=== PATIENT | female | born 1990 | race Caucasian/White ===

== ENCOUNTER 2019-08-17 16:18 | Emergency (ER) | payer OTHER, SELFPAY ==
[2019-08-17 16:30] VITALS: BP 140/71; PULSE 126; RESP 20; TEMP 37.9; O2SAT 98
--- NOTE | 2019-08-17 17:45 | ED.URI ---
HPI - URI/Sore Throat General Chief Complaint: Upper Respiratory Infection Stated Complaint: nausea fever aches Time Seen by Provider: 08/17/19 17:25 Source: RN notes reviewed Mode of arrival: ambulatory Limitations: no limitations History of Present Illness HPI Narrative: 28 year old female presents to [facility] care with complaints of cough, fever, chills for the past 2 days with some nausea and vomiting. Patient states that she is 19 weeks fever up to 101F and wants to be checked for flu. Patient states that she has had some yellowish nasal drainage and nasal congestion has taken some Tylenol for her fever and symptoms. Patient denies any ear pain or sore throat, or any urinary symptoms. MD elicited complaint: fever, cough, rhinorrhea and nasal congestion Pertinent past history: asthma Onset (ago): day(s) (1) Consistency: progressively worsening Severity: moderate Description of mucous: yellow Exacerbating factors: exertion and deep breaths Relieving factors: NSAID Associated symptoms: fever, myalgias, rhinorrhea, nasal congestion, cough, nausea and vomiting Treatments prior to arrival: acetaminophen Related Data Home Medications Medication Instructions Recorded Confirmed [id number]-[id number] 6-dha 3 cap PO DAILY 08/17/19 08/17/19 Allergies Allergy/AdvReac Type Severity Reaction Status Date / Time Penicillins Allergy Severe Rash Verified 08/17/19 16:41 SPICY FOODS Allergy Unknown UNKNOWN Uncoded 01/28/19 12:12 Review of Systems Review of Systems: Narrative: CONSTITUTIONAL: Positive fever, chills, or sweats. EYES: Denies visual changes, redness, or discharge. ENT: Positive rhinorrhea, congestion,no sore throat, or otalgia. CARDIOVASCULAR: Denies chest pain, palpitations, or edema. RESPIRATORY: Positive cough denies no dyspnea. GASTROINTESTINAL: Denies abdominal pain, nausea, vomiting, or diarrhea. GENITOURINARY: Denies dysuria or hematuria. SKIN: Denies rash or itching. MUSCULOSKELETAL: Denies back pain, joint pain,body aches NEUROLOGIC: Denies headache, numbness, or weakness. PSYCHIATRIC: Denies anxiety or depression. All systems reviewed & are unremarkable except as noted in HPI and below PMFSH Past Medical History Medical History (Updated 08/22/19 @ 16:13 by Rufina De La Rosa NP) Anxiety and depression Asthma Social History Social History (Updated 08/22/19 @ 16:14 by Rufina De La Rosa NP) Smoking status: Former smoker Living arrangements: with family Gender identity (if verbalized by the patient): Female Comments At time of signature, agree with nursing past medical, social history. There is no relevant family history pertinent to the presenting complaint Exam Narrative: Exam Narrative: GENERAL: Well-appearing, well-nourished, and in no acute distress. HEAD: Normocephalic, atraumatic. EYES: PERRLA and EOMI. ENT: Nares clear, clear rhinorrhea no epistaxis. Mucous membranes moist.TM's normal with good light reflex, NECK: Supple.no lymphadenopathy CHEST: Clear to auscultation. No respiratory distress. cough with expectoration of yellow mucous HEART: Regular rate and rhythm. No murmur heard. Normal peripheral pulses. ABDOMEN: Soft, nontender, nondistended, normal active bowel sounds. EXTREMITIES: Normal range of motion. No edema. SKIN: Warm, dry, no rash. NEURO: No focal deficits. Alert and oriented x3. Course Vital Signs Vital signs: Vital Signs Temperature 37.9 C H 08/17/19 16:30 Pulse Rate 126 H 08/17/19 16:30 Respiratory Rate 20 08/17/19 16:30 Blood Pressure 140/71 08/17/19 16:30 Pulse Oximetry 98 08/17/19 16:30 Temperature 37.9 C H 08/17/19 16:30 Pulse Rate 126 H 08/17/19 16:30 Respiratory Rate 20 08/17/19 16:30 Blood Pressure 140/71 08/17/19 16:30 Pulse Oximetry 98 08/17/19 16:30 MDM - URI/Sore Throat Differential Diagnosis Differential diagnosis: Likely upper respiratory infection, viral infection, influenza and other (Nausea and vomit
== END 2019-08-17 18:03 | disposition home or self-care (01) ==
PROVIDERS: Emergency Provider Registered Nurse
DX: J10.1 Influenza due to other identified influenza virus with other respiratory manifestations (principal); Z87.891 Personal history of nicotine dependence
CPT/HCPCS: 87804; 99213; G0463

== ENCOUNTER 2020-10-17 09:01 | Emergency (ER) | payer OTHER, SELFPAY ==
[2020-10-17 09:04] VITALS: BP 145/93; PULSE 115; RESP 22; TEMP 36.8; O2SAT 97
--- NOTE | 2020-10-17 09:14 | ED.GENADULT ---
HPI - General Adult General Chief complaint: Upper Respiratory Infection Stated complaint: no taste or smell and congestion Source: patient, RN notes reviewed and old records reviewed Mode of arrival: ambulatory Limitations: no limitations History of Present Illness HPI narrative: 29 year old female who presents to [facility] care with complaints of sore throat which started yesterday and loss of taste and smell this morning with body aches has also frontal headache and sinus drainage. Patient states she does have a history of asthma but has not had to use her inhaler for years, does have a current albuterol inhaler at home. Patient states that she has had past sinus infections, strep throat and also tonsillitis, denies any recent antibiotic use in the past 60 days. Patient states that her cough is nonproductive and she has no shortness of breath or any wheezing noted with lungs clear to auscultation, SAO2 99% on room air. Patient reports that 9 month old has cold symptoms of nasal congestion and cough. MD complaint: sore throat, cough, rhinorrhea, loss of taste and smell, body aches Onset (ago): day(s) (2) Location: head (headache) and mouth Radiation: non-radiation Severity: mild Severity scale (1-10): 3 Quality: aching Pain Consistency: constant Relieving factors: none Exacerbating factors: none Associated symptoms: cough, headaches and other (headache, loss of taste and smell) Treatments prior to arrival: NSAID Related Data Home Medications Medication Instructions Recorded Confirmed albuterol sulfate INHALATION 10/17/20 Allergies Allergy/AdvReac Type Severity Reaction Status Date / Time Penicillins Allergy Severe Rash Verified 10/17/20 09:23 SPICY FOODS Allergy Unknown UNKNOWN Uncoded 01/28/19 12:12 Review of Systems Review of Systems: Narrative: CONSTITUTIONAL: Denies any known fever, chills, positive sweats. EYES: Denies visual changes, redness, or discharge. ENT: Positive rhinorrhea, congestion,positive sore throat, no otalgia. CARDIOVASCULAR: Denies chest pain, palpitations, or edema. RESPIRATORY: Positive nonproductive cough, denies dyspnea. GASTROINTESTINAL: Denies abdominal pain, nausea, vomiting, or diarrhea. GENITOURINARY: Denies dysuria or hematuria. SKIN: Denies rash or itching. MUSCULOSKELETAL: Denies back pain, joint pain, states body aches NEUROLOGIC: Positive for headache, no numbness, or weakness. PSYCHIATRIC: Positive for anxiety or depression. All systems reviewed & are unremarkable except as noted in HPI and below PMFSH Past Medical History Medical History (Updated 10/17/20 @ 10:01 by Rufina De La Rosa NP) ADHD (attention deficit hyperactivity disorder) Anxiety and depression Asthma Surgical History Surgical History (Updated 10/17/20 @ 09:42 by Rufina De La Rosa NP) No history of previous surgery Family History Family History (Updated 10/17/20 @ 10:30 by Rufina De La Rosa NP) Other No pertinent family history Social History Social History (Updated 10/17/20 @ 10:29 by Rufina De La Rosa NP) Smoking status: Former smoker Alcohol intake: current Alcohol use details: Social Substance use: never Living arrangements: with family Gender identity (if verbalized by the patient): Female Comments At time of signature, agree with nursing past medical, surgical, social and family history. There is no relevant family history pertinent to the presenting complaint Exam Narrative: Exam Narrative: GENERAL: Well-appearing, well-nourished obese female and in no acute distress. HEAD: Normocephalic, atraumatic. EYES: PERRLA and EOMI. no nystagmus or eye drainage ENT: Nares with turbinates swollen copious clear rhinorrhea no epistaxis. Mucous membranes moist. TMs normal with good light reflex, throat red no exudates or lesions, mild tonsillar swelling postnasal drainage present NECK: Supple. No lymphadenopathy CHEST: Clear to auscultation. No respiratory distress. Nonpro
[2020-10-18 17:06] LABS: SARS-CoV-2 RNA PCR Negative
== END 2020-10-17 10:02 | disposition home or self-care (01) ==
PROVIDERS: Emergency Provider Registered Nurse; PCP Nurse Practitioner Family
DX: J06.9 Acute upper respiratory infection, unspecified (principal); Z20.822 Contact with and (suspected) exposure to COVID-19; Z87.891 Personal history of nicotine dependence; J45.909 Unspecified asthma, uncomplicated
CPT/HCPCS: 87081; 87426; 87804; 87880; 99213; C9803; G0463; U0003; U0005

== ENCOUNTER 2021-02-12 12:52 | Emergency (ER) | payer OTHER, SELFPAY ==
[2021-02-12 13:00] VITALS: BP 135/80; PULSE 103; RESP 20; TEMP 36.6; O2SAT 100
--- NOTE | 2021-02-12 13:00 | ED.URI ---
HPI - URI/Sore Throat General Chief Complaint: Upper Respiratory Infection Stated Complaint: nausea cough fatigue sore throat Time Seen by Provider: 02/12/21 13:00 Source: patient and RN notes reviewed History of Present Illness HPI Narrative: Patient is a 30-year-old female who presents the urgent care with complaints of fatigue, sore throat, cough, nausea and the taste of infection . Patient states her symptoms started 2 days ago and denies of any known exposure to strep or Covid. States that she has been taking ibuprofen for her symptoms. States that her and her son both have symptoms. Patient has not obtain a Covid test. Patient has not had her Covid vaccine. No other acute complaints. No acute distress noted. Patient aware of the plan of care. Some parts of this dictation were generated by voice recognition software and may contain typographical and/or grammatical inaccuracies. Related Data Home Medications Medication Instructions Recorded Confirmed No Home Medications 02/12/21 02/12/21 Allergies Allergy/AdvReac Type Severity Reaction Status Date / Time Penicillins Allergy Severe Rash Verified 02/12/21 13:08 Review of Systems Review of Systems: CONSTITUTIONAL: Denies fever, chills, or sweats. EYES: Denies visual changes, redness, or discharge. ENT: Reports of congestion, sore throat CARDIOVASCULAR: Denies chest pain, palpitations, or edema. RESPIRATORY: Reports of cough without dyspnea GASTROINTESTINAL: Denies abdominal pain, nausea, vomiting, or diarrhea. GENITOURINARY: Denies dysuria or hematuria. SKIN: Denies rash or itching. MUSCULOSKELETAL: Denies back pain, joint pain. Reports of fatigue NEUROLOGIC: Denies headache, numbness, or weakness. All other systems reviewed are negative, except as documented in HPI. [facility] Past Medical History Medical History (Updated 02/12/21 @ 13:25 by ANTHONY De Luna) ADHD (attention deficit hyperactivity disorder) Anxiety and depression Asthma Surgical History Surgical History (Updated 10/17/20 @ 09:42 by Rufina De La Rosa NP) No history of previous surgery Family History Family History (Updated 10/17/20 @ 10:30 by Rufina De La Rosa NP) Other No pertinent family history Social History Social History (Updated 10/17/20 @ 10:29 by Rufina De La Rosa NP) Smoking status: Former smoker Alcohol intake: current Alcohol use details: Social Substance use: never Gender identity (if verbalized by the patient): Female Comments At the time of my signature, I reviewed and agree with the nursing past medical, surgical, social, and family history. There is no relevant family history pertinent to the patient complaint. Exam Narrative: GENERAL: This is a well-nourished, well-developed patient, in no apparent distress. HEAD: normocephalic, atraumatic. EYES: PERRL. Sclera clear/white. Vision is grossly intact. EARS: External ears normal, auditory canals clear and without drainage, TMs normal without perforation. Hearing grossly intact. NOSE: External nose normal with no obvious nasal discharge, nares without redness, no rhinorrhea. THROAT: Mucous membranes moist, posterior pharynx clear. Moderate postnasal drainage NECK: Neck supple, non-tender without lymphadenopathy CARDIOVASCULAR: Regular rate and rhythm without murmurs, gallops, or rubs. RESPIRATORY: Clear to auscultation. Breath sounds equal bilaterally. No wheezes, rales, or rhonchi. SKIN: warm, intact with no suspicious lesions or rash, good texture and turgor. NEURO: awake, alert, and oriented to person, place and time. There were no obvious focal neurologic abnormalities. EXTREMITIES: No clubbing, cyanosis, or edema. Course Vital Signs Vital signs: Vital Signs Temperature 97.9 F 02/12/21 13:00 Pulse Rate 103 H 02/12/21 13:00 Respiratory Rate 20 02/12/21 13:00 Blood Pressure 135/80 02/12/21 13:00 Pulse Oximetry 100 02/12/21 13:00 Temperature 97.9 F
== END 2021-02-12 13:30 | disposition home or self-care (01) ==
PROVIDERS: Emergency Provider Nurse Practitioner Family; PCP Nurse Practitioner Family
DX: J02.9 Acute pharyngitis, unspecified (principal); Z87.891 Personal history of nicotine dependence; J45.909 Unspecified asthma, uncomplicated
CPT/HCPCS: 87081; 87880; 99213; G0463

== ENCOUNTER 2021-11-11 18:57 | Emergency (ER) | payer OTHER, SELFPAY ==
[2021-11-11 19:02] VITALS: BP 152/86; PULSE 86; RESP 20; TEMP 37.1; O2SAT 100
--- NOTE | 2021-11-11 19:03 | ED.DENTAL ---
HPI - Dental/Oral General Chief complaint: Dental/Oral Stated complaint: Toothache Time Seen by Provider: 11/11/21 19:03 Source: patient and RN notes reviewed History of Present Illness HPI Narrative: Patient is a 30-year-old female who presents the urgent care with complaints of left lower dental pain. Patient states that started approximately 4 days ago and she has been taking ibuprofen. Patient states that the pain is now radiating to her jaw and neck. Patient denies any fevers, nausea or vomiting. No other acute complaints. No acute distress noted. Patient aware of the plan of care. Some parts of this dictation were generated by voice recognition software and may contain typographical and/or grammatical inaccuracies. Related Data Allergies Allergy/AdvReac Type Severity Reaction Status Date / Time Penicillins Allergy Severe Rash Verified 02/12/21 13:08 Review of Systems Review of Systems: CONSTITUTIONAL: Denies fever, chills, or sweats. EYES: Denies visual changes, redness, or discharge. ENT: Denies rhinorrhea, congestion, sore throat, or otalgia. Reports of left lower dental pain CARDIOVASCULAR: Denies chest pain, palpitations, or edema. RESPIRATORY: Denies cough or dyspnea. GASTROINTESTINAL: Denies abdominal pain, nausea, vomiting, or diarrhea. GENITOURINARY: Denies dysuria or hematuria. SKIN: Denies rash or itching. MUSCULOSKELETAL: Denies back pain, joint pain, or myalgia. NEUROLOGIC: Denies headache, numbness, or weakness. All other systems reviewed are negative, except as documented in HPI. [facility] Past Medical History Medical History (Updated 11/11/21 @ 19:14 by ANTHONY De Luna) ADHD (attention deficit hyperactivity disorder) Anxiety and depression Asthma Surgical History Surgical History (Updated 10/17/20 @ 09:42 by Rufina De La Rosa NP) No history of previous surgery Family History Family History (Updated 10/17/20 @ 10:30 by Rufina De La Rosa NP) Other No pertinent family history Social History Social History (Updated 10/17/20 @ 10:29 by Rufina De La Rosa NP) Smoking status: Former smoker Alcohol intake: current Alcohol use details: Social Substance use: never Gender identity (if verbalized by the patient): Female Comments At the time of my signature, I reviewed and agree with the nursing past medical, surgical, social, and family history. There is no relevant family history pertinent to the patient complaint. Exam Narrative: GENERAL: This is a well-nourished, well-developed patient, in no apparent distress. HEAD: normocephalic, atraumatic. EYES: PERRL. Sclera clear/white. Vision is grossly intact. EARS: External ears normal NOSE: External nose normal with no obvious nasal discharge, nares without redness, no rhinorrhea. THROAT: Mucous membranes moist, posterior pharynx clear. DENTAL: Mild edema/abscess surrounding the left lower first molar, tooth #19 with moderate erythema NECK: Neck supple, non-tender without lymphadenopathy CARDIOVASCULAR: Regular rate and rhythm without murmurs, gallops, or rubs. RESPIRATORY: Clear to auscultation. Breath sounds equal bilaterally. No wheezes, rales, or rhonchi. SKIN: warm, intact with no suspicious lesions or rash, good texture and turgor. NEURO: awake, alert, and oriented to person, place and time. There were no obvious focal neurologic abnormalities. EXTREMITIES: No clubbing, cyanosis, or edema. Course Course Level of Care: Express Care Visit Vital Signs Vital signs: Vital Signs Temperature 98.7 F 11/11/21 19:02 Pulse Rate 86 11/11/21 19:02 Respiratory Rate 20 11/11/21 19:02 Blood Pressure 152/86 H 11/11/21 19:02 Pulse Oximetry 100 11/11/21 19:02 Temperature 98.7 F 11/11/21 19:02 Pulse Rate 86 11/11/21 19:02 Respiratory Rate 20 11/11/21 19:02 Blood Pressure 152/86 H 11/11/21 19:02 Pulse Oximetry 100 11/11/21 19:02 Reviewed-patient is informed that they may have pre-hypertension
== END 2021-11-11 19:20 | disposition home or self-care (01) ==
PROVIDERS: Emergency Provider Nurse Practitioner Family; PCP Nurse Practitioner Family
DX: K04.7 Periapical abscess without sinus (principal); J45.909 Unspecified asthma, uncomplicated
CPT/HCPCS: 99213; G0463

== ENCOUNTER 2021-12-22 09:25 | Emergency (ER) | payer OTHER, SELFPAY ==
[2021-12-22 09:32] VITALS: BP 151/94; PULSE 108; RESP 18; TEMP 36.9; O2SAT 98
--- NOTE | 2021-12-22 09:38 | ED.SKABFB ---
HPI - Skin/Abscess/Foreign Bdy General Chief complaint: Skin/Abscess/Foreign Body Stated complaint: Rash Time Seen by Provider: 12/22/21 09:43 Source: patient Mode of arrival: ambulatory Limitations: no limitations History of Present Illness HPI narrative: 30-year-old female presenting for complaint of rash to groin and lower abdominal fold for about 3 days. She has applied [id number] cream and has had no relief. States it is itching and burning. MD complaint: rash Related Data Home Medications Medication Instructions Recorded Confirmed acyclovir 400 mg tablet 1 tablet PO DAILY 12/22/21 12/22/21 dextroamphetamine-amphetamine ER 1 cap PO DAILY 12/22/21 12/22/21 15 mg 24hr capsule,extend release Allergies Allergy/AdvReac Type Severity Reaction Status Date / Time Penicillins Allergy Severe Rash Verified 12/22/21 09:40 Review of Systems Review of Systems: CONSTITUTIONAL: Denies body aches, fever, chills, or sweats. CARDIOVASCULAR: Denies chest pain, palpitations, or edema. RESPIRATORY: Denies cough or dyspnea. SKIN: Reports rash, itching MUSCULOSKELETAL: Denies back pain, joint pain, or myalgia. NEUROLOGIC: Denies headache, numbness, tingling, or weakness. [facility] Past Medical History Medical History ADHD (attention deficit hyperactivity disorder) Anxiety and depression Asthma Surgical History Surgical History No history of previous surgery Family History Family History Other No pertinent family history Social History Social History Smoking status: Former smoker Alcohol intake: current Alcohol use details: Social Substance use: never Gender identity (if verbalized by the patient): Female Comments At time of signature, I have reviewed and agree with nursing past medical, surgical, social and family history unless otherwise noted. Please see nursing chart for further information. There is no relevant family history pertinent to the presenting complaint Exam Narrative: GENERAL: Well-appearing EYES: conjunctivae clear, and EOMI. ENT: Mucous membranes moist. Oropharynx without edema, erythema or lesions. NECK: Supple. No lymphadenopathy CHEST: Clear to auscultation. No respiratory distress. HEART: Regular rate and rhythm. SKIN: Warm, dry. Patches of erythematous rash to bilateral groin inner thighs and low abd fold c/w fungal dermatitis NEURO: Alert and oriented x3. PSYCH: Normal mood and affect Course Course Emergency Course: Patient is aware of diagnosis, understands and agrees to treatment plan. Anticipatory guidance given. Patient agrees to follow-up as directed and is aware of reasons to seek care at the emergency department. Portions of this record may have been created with voice recognition software Level of Care: Express Care Visit Vital Signs Vital signs: Vital Signs Temperature 98.5 F 12/22/21 09:32 Pulse Rate 108 H 12/22/21 09:32 Respiratory Rate 18 12/22/21 09:32 Blood Pressure 151/94 H 12/22/21 09:32 Pulse Oximetry 98 12/22/21 09:32 Oxygen Delivery Room Air 12/22/21 09:32 Temperature 98.5 F 12/22/21 09:42 Pulse Rate 108 H 12/22/21 09:42 Respiratory Rate 18 12/22/21 09:42 Blood Pressure 151/94 H 12/22/21 09:42 Pulse Oximetry 98 12/22/21 09:42 Oxygen Delivery Room Air 12/22/21 09:42 Reviewed MDM - Skin/Abscess/Foreign Bdy MDM Narrative Medical decision making narrative: Does not appear at this time to be erythema multiforme, bullous, SJS, TEN Patient looks well, afebrile; appropriate for initial outpatient treatment; discussed the importance of follow-up, patient agrees. Instructed patient to go to nearest ER immediately for any worsening symptoms including but not limited to: fever,
[2021-12-22 09:42] VITALS: BP 151/94; PULSE 108; RESP 18; TEMP 36.9; O2SAT 98
== END 2021-12-22 09:54 | disposition home or self-care (01) ==
PROVIDERS: Emergency Provider Nurse Practitioner Family; PCP Nurse Practitioner Family
DX: B36.8 Other specified superficial mycoses (principal); Z87.891 Personal history of nicotine dependence
CPT/HCPCS: 99213; G0463

== ENCOUNTER 2022-03-25 08:13 | Emergency (ER) | payer OTHER, SELFPAY ==
[2022-03-25 08:18] VITALS: BP 145/96; PULSE 103; RESP 20; TEMP 37.3; O2SAT 99
--- NOTE | 2022-03-25 08:38 | ED.FEMALEGU ---
HPI - Female Genitourinary General Chief complaint: Urogenital-Female Stated complaint: possible uti Time Seen by Provider: 03/25/22 08:38 Source: patient and RN notes reviewed Mode of arrival: ambulatory Limitations: no limitations History of Present Illness HPI Narrative: 31 y/o female presented for c/o pain at the end of urination since yesterday, and developed low abdominal pain though the night and had blood in urine this morning. Endorses frequency and urgency. Denies n/v/d, flank pain, fever or chills. LMP 2 weeks ago. Denies concern for STD. PCN allergy. Related Data Home Medications Medication Instructions Recorded Confirmed dextroamphetamine-amphetamine ER 1 cap PO DAILY 12/22/21 03/25/22 15 mg 24hr capsule,extend release Allergies Allergy/AdvReac Type Severity Reaction Status Date / Time Penicillins Allergy Severe Rash Verified 03/25/22 08:35 Review of Systems Review of Systems: CONSTITUTIONAL: Denies body aches, fever, chills, or sweats. CARDIOVASCULAR: Denies chest pain, palpitations, or edema. RESPIRATORY: Denies cough or dyspnea. GASTROINTESTINAL: Denies nausea, vomiting, or diarrhea. GENITOURINARY: Reports dysuria, frequency, urgency, hematuria, denies flank pain MUSCULOSKELETAL: Denies back pain or myalgia. [facility] Past Medical History Medical History ADHD (attention deficit hyperactivity disorder) Anxiety and depression Asthma Surgical History Surgical History No history of previous surgery Family History Family History Other No pertinent family history Social History Social History Smoking status: Former smoker Alcohol intake: current Alcohol use details: Social Substance use: never Gender identity (if verbalized by the patient): Female Comments At time of signature, I have reviewed and agree with nursing past medical, surgical, social and family history unless otherwise noted. Please see nursing chart for further information. There is no relevant family history pertinent to the presenting complaint Exam Narrative: GENERAL: Well-appearing ENT: Mucous membranes pink and moist. CHEST: No respiratory distress. Clear to auscultation. HEART: Regular rate and rhythm. ABDOMEN: Soft, nontender, nondistended, normal active bowel sounds. No CVA tenderness SKIN: Warm, dry, no rash. NEURO: Alert and oriented x3. Gait steady. PSYCH: Normal affect. Course Course Emergency Course: Patient is aware of diagnosis, understands and agrees to treatment plan. Anticipatory guidance given. Patient agrees to follow-up as directed and is aware of reasons to seek care at the emergency department. Portions of this record may have been created with voice recognition software Level of Care: Express Care Visit Vital Signs Vital signs: Vital Signs Temperature 99.1 F 03/25/22 08:18 Pulse Rate 103 H 03/25/22 08:18 Respiratory Rate 20 03/25/22 08:18 Blood Pressure 145/96 H 03/25/22 08:18 Pulse Oximetry 99 03/25/22 08:18 Oxygen Delivery Room Air 03/25/22 08:18 Temperature 99.1 F 03/25/22 08:18 Pulse Rate 103 H 03/25/22 08:18 Respiratory Rate 20 03/25/22 08:18 Blood Pressure 145/96 H 03/25/22 08:18 Pulse Oximetry 99 03/25/22 08:18 Oxygen Delivery Room Air 03/25/22 08:18 Reviewed MDM - Female Genitourinary MDM Narrative Medical decision making narrative: Results of urine reviewed with patient. We will treat with antibiotics, send for culture, and she is requesting medication for yeast infection. Advised supportive measures and signs/symptoms to go to the ER. Pt is appropriate for outpt treatment and f/u. Differential Diagnosis Differential diagnosis: Likely urinary tract infection and cystitis Lab Data [place]
== END 2022-03-25 08:55 | disposition home or self-care (01) ==
PROVIDERS: Emergency Provider Nurse Practitioner Family; PCP Nurse Practitioner Family
DX: N39.0 Urinary tract infection, site not specified (principal); Z87.891 Personal history of nicotine dependence; F90.9 Attention-deficit hyperactivity disorder, unspecified type; J45.909 Unspecified asthma, uncomplicated
CPT/HCPCS: 81003; 87077; 87086; 87186; 99213; G0463

== ENCOUNTER 2022-06-11 14:34 | Emergency (ER) | payer OTHER, SELFPAY ==
[2022-06-11 14:37] VITALS: BP 139/92; PULSE 91; RESP 18; TEMP 36.6; O2SAT 99
--- NOTE | 2022-06-11 15:09 | ED.URI ---
HPI - URI/Sore Throat General Chief Complaint: Upper Respiratory Infection Stated Complaint: Sore Throat/Body Aches Time Seen by Provider: 06/11/22 15:09 Source: patient and RN notes reviewed Mode of arrival: ambulatory Limitations: no limitations History of Present Illness HPI Narrative: 31-year-old female presented for complaint of sore throat, headache, body aches, sinus pressure/congestion, cough. onset yesterday. Taking ibuprofen for symptoms. Denies sick contacts. She had a negative COVID test at home today. Denies shortness of breath, wheezing, nausea, vomiting, diarrhea, fevers or chills. MD elicited complaint: cough Related Data Home Medications Medication Instructions Recorded Confirmed dextroamphetamine-amphetamine ER 1 cap PO DAILY 12/22/21 06/11/22 15 mg 24hr capsule,extend release Allergies Allergy/AdvReac Type Severity Reaction Status Date / Time Penicillins Allergy Severe Rash Verified 06/11/22 14:42 Review of Systems Review of Systems: ROS per HPI [facility] Past Medical History Medical History ADHD (attention deficit hyperactivity disorder) Anxiety and depression Asthma Surgical History Surgical History No history of previous surgery Family History Family History Other No pertinent family history Social History Social History Smoking status: Former smoker Alcohol intake: current Alcohol use details: Social Substance use: never Gender identity (if verbalized by the patient): Female Exam Narrative: GENERAL: well-appearing, nontoxic EYES: PERRLA, conjunctivae clear ENT: Mucous membranes moist. TMs pearly archer with dull light reflex bilaterally; no tragal tenderness. Oropharynx erythematous without lesions or exudate, no drooling, no hoarseness, no trismus, uvula midline. No tripod positioning, muffled voice, soft palate or pharyngeal wall bulging CHEST: Clear to auscultation, breath sounds equal. No wheezing, rhonchi, rales, or stridor. HEART: Regular rate and rhythm. No murmur heard. SKIN: Warm, dry, no rash. NEURO: Alert and oriented x3. PSYCH: Normal mood and affect Course Course Emergency Course: Patient is aware of diagnosis, understands and agrees to treatment plan. Anticipatory guidance given. Patient agrees to follow-up as directed and is aware of reasons to seek care at the emergency department. Portions of this record may have been created with voice recognition software Level of Care: Express Care Visit Vital Signs Vital signs: Vital Signs Temperature 98 F 06/11/22 14:37 Pulse Rate 91 06/11/22 14:37 Respiratory Rate 18 06/11/22 14:37 Blood Pressure 139/92 H 06/11/22 14:37 Pulse Oximetry 99 06/11/22 14:37 Oxygen Delivery Room Air 06/11/22 14:37 Temperature 98 F 06/11/22 14:37 Pulse Rate 91 06/11/22 14:37 Respiratory Rate 18 06/11/22 14:37 Blood Pressure 139/92 H 06/11/22 14:37 Pulse Oximetry 99 06/11/22 14:37 Oxygen Delivery Room Air 06/11/22 14:37 reviewed MDM - URI/Sore Throat MDM Narrative Medical decision making narrative: flu negative. Results reviewed with patient. Unable to test for rapid strep this time. Will treat empirically based on PE. Advised supportive measures and signs/symptoms to go to the ER. Pt is appropriate for outpt treatment and f/u. Differential Diagnosis Differential diagnosis: Likely upper respiratory infection, sinusitis, viral infection, influenza and pharyngitis Discharge Plan Discharge Clinical Impression: Viral infection Patient Disposition: Home, Self-Care Condition: Stable Instructions: Viral Syndrome (ED) Additional Instructions: - Take the antibiotic as directed. Fever and sore throat typically resolve within one to th
== END 2022-06-11 15:40 | disposition home or self-care (01) ==
PROVIDERS: Emergency Provider Nurse Practitioner Family; PCP Nurse Practitioner Family
DX: B34.9 Viral infection, unspecified (principal); F90.9 Attention-deficit hyperactivity disorder, unspecified type; J45.909 Unspecified asthma, uncomplicated; Z87.891 Personal history of nicotine dependence
CPT/HCPCS: 87804; 99213; G0463

== ENCOUNTER 2023-05-01 09:29 | Emergency (ER) | payer MEDICAID, SELFPAY ==
[2023-05-01 09:36] VITALS: BP 144/90; PULSE 109; RESP 16; TEMP 36.1; O2SAT 96
--- NOTE | 2023-05-01 09:41 | ED.URI ---
HPI - URI/Sore Throat General Chief Complaint: Upper Respiratory Infection Stated Complaint: Shortness of Breath Source: patient and RN notes reviewed History of Present Illness HPI Narrative: 32 yo F presents to urgent care with complaints of a cough x 3 days. Pt also reporting dyspnea the last day or so. Pt denies any congestion, ear pain, sore throat, chest pain, fevers, chills, N/V/D. Pt has not taken anything for her cough. Related Data Allergies Allergy/AdvReac Type Severity Reaction Status Date / Time Penicillins Allergy Severe Rash Verified 06/11/22 14:42 Review of Systems Review of Systems: Pertinent positives and pertinent negatives per HPI. [facility] Past Medical History Medical History ADHD (attention deficit hyperactivity disorder) Anxiety and depression Asthma Surgical History Surgical History No history of previous surgery Family History Family History Other No pertinent family history Social History Social History Smoking status: Former smoker Alcohol intake: current Alcohol use details: Social Substance use: never Living arrangements: with family Gender identity (if verbalized by the patient): Female Comments At the time of my signature, I reviewed and agree with the nursing past medical, surgical, social, and family history. There is no relevant family history pertinent to the patient complaint. Exam Narrative: GENERAL: This is a well-nourished, well-developed patient, in no apparent distress. HEAD: normocephalic, atraumatic. EYES: Sclera clear/white. Vision is grossly intact. EARS: External ears normal, auditory canals clear and without drainage. Hearing grossly intact. NOSE: External nose normal with no obvious nasal discharge, nares without redness, no rhinorrhea. THROAT: Mucous membranes moist. NECK: Neck supple, non-tender without lymphadenopathy, masses or thyromegaly. CARDIOVASCULAR: Regular rate and rhythm without murmurs, gallops, or rubs. RESPIRATORY: Clear to auscultation. Breath sounds equal bilaterally. No wheezes, rales, or rhonchi. GASTROINTESTINAL: Abdomen soft, non-tender, nondistended. Bowel sounds are active. No hepato-splenomegaly, or palpable masses. No guarding. SKIN: warm, intact with no suspicious lesions or rash, good texture and turgor. NEURO: awake, alert, and oriented to person, place and time. There were no obvious focal neurologic abnormalities. Course Course Level of Care: Express Care Visit Vital Signs Vital signs: reviewed MDM - URI/Sore Throat MDM Narrative Medical decision making narrative: Take steroids as directed. May use the inhaler every 4-6 hours as needed for coughing. Increase fluids at home. Avoid any and all smoke. May use a humidifier in the bedroom. Increase your Vitamin C. Follow-up with personal physician in 2-5 days. Differential Diagnosis Differential diagnosis: Likely upper respiratory infection, sinusitis, viral infection and bronchitis Critical Care Time Critical Care Time Critical Care Time: No Discharge Plan Discharge Clinical Impression: Bronchitis Patient Disposition: Home, Self-Care Condition: Stable Instructions: Acute Bronchitis (ED) Additional Instructions: Take steroids as directed. May use the inhaler every 4-6 hours as needed for coughing. Increase fluids at home. Avoid any and all smoke. May use a humidifier in the bedroom. Increase your Vitamin C. Follow-up with personal physician in 2-5 days. Prescriptions: New prednisone 20 mg tablet 40 mg PO DAILY 5 Days Qty: 10 0RF albuterol sulfate 90 mcg/actuation HFA aerosol inhaler 2 puff inhalation QID PRN (Reason: shortness of breath or wheezing) Qty: 8.5 0RF Follow-up/Referrals: Grant,H
== END 2023-05-01 09:54 | disposition home or self-care (01) ==
PROVIDERS: Emergency Provider Nurse Practitioner Family; PCP Nurse Practitioner Family
DX: J40 Bronchitis, not specified as acute or chronic (principal); J45.909 Unspecified asthma, uncomplicated; Z87.891 Personal history of nicotine dependence
CPT/HCPCS: 99213; G0463

== ENCOUNTER 2023-09-10 16:34 | Emergency (ER) | payer OTHER, SELFPAY ==
[2023-09-10 16:40] VITALS: BP 132/93; PULSE 90; RESP 20; TEMP 36.9; O2SAT 99
--- NOTE | 2023-09-10 16:58 | ED.GENADULT ---
HPI - General Adult General Chief complaint: Upper Respiratory Infection Stated complaint: Sore Throat/Body Aches Source: patient, RN notes reviewed and old records reviewed Mode of arrival: ambulatory Limitations: no limitations History of Present Illness HPI narrative: 32-year-old female presents to [facility] with complaints of sore throat body aches that started 2-3 days ago. Patient taking [id number] medications with no relief. Patient states also has slight sinus congestion but no other symptoms. Related Data Home Medications Medication Instructions Recorded Confirmed No Home Medications 09/10/23 09/10/23 Allergies Allergy/AdvReac Type Severity Reaction Status Date / Time Penicillins Allergy Severe Anaphylaxis Verified 09/10/23 16:59 Review of Systems Constitutional: Constitutional: Reports no additional constitutional complaints, Denies body ache(s), Denies chills, Denies fatigue, Denies fever(s) and Denies headache(s) Eyes: Eyes: Reports no additional eye complaints and Denies blurry vision ENT: Reports system reviewed and no additional complaints, except as documented, Denies vertigo, Denies dizziness, Denies ear discharge, Denies otalgia, Denies facial pain, Denies headache(s), Reports nasal congestion, Denies nasal discharge, Denies sinus pain, Denies sinus pressure and Reports sore throat Cardiovascular: Cardiovascular: Reports no additional cardiovascular complaints, Denies chest pain, Denies chest pain at rest, Denies rapid heart rate and Denies dyspnea Respiratory: Respiratory: Reports no additional respiratory complaints, Denies chest congestion, Denies cough, Denies pain on inspiration, Denies pain with cough and Denies dyspnea Gastrointestinal: Gastrointestinal: Denies abdominal pain, Denies diarrhea, Denies nausea and Denies vomiting Integumentary/Breasts: Skin/Breast: Denies rash Neurologic: Reports system reviewed and no additional complaints, except as documented, Denies vertigo, Denies dizziness and Denies headache(s) Endocrine: Endocrine: Denies fatigue PMFSH Past Medical History Medical History ADHD (attention deficit hyperactivity disorder) Anxiety and depression Asthma Surgical History Surgical History No history of previous surgery Family History Family History Other No pertinent family history Social History Social History Smoking status: Former smoker Alcohol intake: current Alcohol use details: Social Substance use: never Living arrangements: with family Gender identity (if verbalized by the patient): Female Comments At the time of my signature, I reviewed and agree with the nursing past medical, surgical, social, and family history. There is no relevant family history pertinent to the patient complaint. Exam Const: General: cooperative, healthy appearing, no acute distress and well nourished Nutritional Appearance: well nourished Orientation/consciousness: patient oriented x3 Limitations: no limitations HENMT: Head: normal to inspection and normocephalic Ears: external ears normal and mastoids normal Face/Nose/Sinus: normal facial exam Face and sinus: normal facial exam Mouth: Yes Normal oral and palatal mucosa present, Yes oropharynx normal and Yes moist mucous membranes Throat: uvula midline, abnormal tonsil bilateral erythema, exudates and hypertrophy, no peritonsillar masses, posterior oropharynx abnormal erythema, no postnasal drainage and no uvular edema Eyes: General: appearance normal, both eyes and all related structures Sclera: sclerae normal Pupils: Equal, round and reactive pupils present Resp: Effort & Inspection: normal respiratory effort, able to speak in complete sentences, no audible wheezes, no cough, no
== END 2023-09-10 17:25 | disposition home or self-care (01) ==
PROVIDERS: Emergency Provider Registered Nurse; PCP Nurse Practitioner Family
DX: J02.9 Acute pharyngitis, unspecified (principal); Z20.822 Contact with and (suspected) exposure to COVID-19; Z87.891 Personal history of nicotine dependence; J45.909 Unspecified asthma, uncomplicated
CPT/HCPCS: 87081; 87426; 87804; 87880; 99213; G0463

== ENCOUNTER 2023-09-19 09:59 | Emergency (ER) | payer OTHER, SELFPAY ==
[2023-09-19 10:10] VITALS: BP 152/77; PULSE 123; RESP 20; TEMP 36.8; O2SAT 100
--- NOTE | 2023-09-19 10:13 | ED.URI ---
HPI - URI/Sore Throat General Chief Complaint: Upper Respiratory Infection Stated Complaint: Fever/Vomiting/Sore Throat History of Present Illness HPI Narrative: Pt is a 32 y/o female, presents to with chills ,body aches and sore throat for a week and a half, followed by one episode of vomiting yesterday. She has no known fevers and she denies diarrhea. She denies known sick contacts or COV exposures. She is taking OTC medications for symptom relief. She denies any additional associated symptoms or modifying factors. She is not . Related Data Allergies Allergy/AdvReac Type Severity Reaction Status Date / Time Penicillins Allergy Severe Anaphylaxis Verified 09/19/23 10:15 Review of Systems Constitutional: Comments: refer to HPI ENT: Comments: refer to HPI Respiratory: Comments: refer to HPI Gastrointestinal: Comments: Refer to HPI [facility] Past Medical History Medical History ADHD (attention deficit hyperactivity disorder) Anxiety and depression Asthma Surgical History Surgical History No history of previous surgery Family History Family History Other No pertinent family history Social History Social History Smoking status: Former smoker Alcohol intake: current Alcohol use details: Social Substance use: never Living arrangements: with family Gender identity (if verbalized by the patient): Female Exam Const: General: healthy appearing, no acute distress and alert Nutritional Appearance: obese centrally obese Orientation/consciousness: patient oriented x3 Limitations: no limitations HENMT: Head: normal to inspection Ears: external ears normal and TM's normal bilaterally Face/Nose/Sinus: Normal external nose present Face and sinus: normal facial exam and sinuses nontender Mouth: Yes Normal oral and palatal mucosa present, Yes lip normal and Yes Abnormal oral and palatal mucosa present erythematous Throat: uvula midline Other: pt has 3+ tonsil hypertrophy with exudate and beefy erythema. Voice is muffled. No trismus, no uvula deviation Eyes: Conjunctivae: conjunctivae normal Pupils: Equal, round and reactive pupils present EOM: EOMs intact bilaterally Neck: Neck: normal visual inspection, no meningeal signs and lymphadenopathy bilateral anterior cervical Resp: Effort & Inspection: normal respiratory effort Auscultation: clear to auscultation bilaterally Cardio: Rate: tachycardic (rate is 110 at PMI) Rhythm: regular rhythm GI: GI Palp: Yes Soft to palpation, No Tenderness to palpation present (GI), No Guarding due to palpation present (GI), No Rigid due to palpation, No Hernia present, No Palpable mass present and No Rebound tenderness present Back/Spine/Pelvis: Back: no CVA tenderness Skin: General skin exam: normal color Rashes: no rashes Wounds: no wounds Neuro: General: patient oriented x3, moves all extremities, no meningeal signs, no focal motor deficits and CN's II-XI intact bilaterally Cranial nerves: Yes Nystagmus not present Speech: normal speech Gait exam (Neuro): Normal gait present Extrem: General: normal to inspection, no clubbing, cyanosis or edema and no pedal edema Course Course Emergency Course: strep, influenza and COV are negative Level of Care: Express Care Visit ([id number]) Vital Signs Vital signs: Vital Signs Temperature 36.8 C 09/19/23 10:10 Pulse Rate 123 H 09/19/23 10:10 Respiratory Rate 20 09/19/23 10:10 Blood Pressure 152/77 H 09/19/23 10:10 Pulse Oximetry 100 09/19/23 10:10 Oxygen Delivery Room Air 09/19/23 10:10 Temperature 36.8 C 09/19/23 10:10 Pulse Rate 123 H 09/19/23 10:10 Respiratory Rate 20 09/19/23 10:10 Blood Pressure 152/77 H 09/19/23 10
== END 2023-09-19 10:44 | disposition left against medical advice (07) ==
PROVIDERS: Emergency Provider Nurse Practitioner Family; PCP Nurse Practitioner Family
DX: J02.9 Acute pharyngitis, unspecified (principal); Z20.822 Contact with and (suspected) exposure to COVID-19; Z87.891 Personal history of nicotine dependence; J45.909 Unspecified asthma, uncomplicated
CPT/HCPCS: 87426; 87804; 87880; 99213; G0463

== ENCOUNTER 2023-11-17 16:52 | Emergency (ER) | payer OTHER, SELFPAY ==
[2023-11-17 16:56] VITALS: BP 138/81; PULSE 96; RESP 20; TEMP 36.4; O2SAT 97
--- NOTE | 2023-11-17 17:27 | ED.SKABFB ---
HPI - Skin/Abscess/Foreign Bdy General Chief complaint: Wound/Laceration Stated complaint: left big toe infection Time Seen by Provider: 11/17/23 17:27 Source: patient, RN notes reviewed and old records reviewed Mode of arrival: ambulatory Limitations: no limitations History of Present Illness HPI narrative: 32 year old female who presents to [facility] with complaints of swelling and redness noted to the lateral aspect and top edge of her left great toe along nail bed. Patient reports that she soaked her great toe in peroxide and water which did seem to help decrease the swelling and redness. Patient reports that it has been there for 2 weeks and occurred after her last pedicure. Patient denies any fevers, chills or sweats. MD complaint: abscess/boil and other (paronychia) Onset (ago): week(s) (2) Severity: moderate Quality: aching Treatments prior to arrival: NSAID and other (soaked left geat toe) Related Data Home Medications Medication Instructions Recorded Confirmed norethindrone 1 mg-ethinyl See Rx Instructions .Route .COMPLEX 11/17/23 11/17/23 estradiol 20 mcg (24)-iron 75 mg (4) tablet (Aurovela 24 Fe) Allergies Allergy/AdvReac Type Severity Reaction Status Date / Time Penicillins Allergy Severe Anaphylaxis Verified 11/17/23 17:18 Review of Systems Review of Systems: CONSTITUTIONAL: Denies fever, chills, or sweats. CARDIOVASCULAR: Denies chest pain, palpitations, or edema. RESPIRATORY: Denies cough or dyspnea. GASTROINTESTINAL: Denies abdominal pain, nausea, vomiting SKIN: Reports redness and swelling along lateral and top of left great toe,nail with no drainage noted some induration of tissue but no fluctuant, no vesicle formation. Denies purulent drainage,. MUSCULOSKELETAL: Denies myalgia. NEUROLOGIC: Denies headache, numbness All systems reviewed & are unremarkable except as noted in HPI and below PMFSH Past Medical History Medical History ADHD (attention deficit hyperactivity disorder) Anxiety and depression Asthma Surgical History Surgical History No history of previous surgery Family History Family History Other No pertinent family history Social History Social History Smoking packs per day: 0.5 Smoking cigarettes per day: 10.0 Years smoked: 15 Smoking pack-years: 7.50 Smoking status: Current every day smoker Tobacco type: e-cigarettes/vaping Additional smoking assessment comments: former cigarette smoker now vapes Alcohol intake: current Alcohol use details: Social Substance use: never Living arrangements: with family Gender identity (if verbalized by the patient): Female Comments At time of signature, agree with nursing past medical, surgical, social and family history. There is no relevant family history pertinent to the presenting complaint Exam Narrative: GENERAL: Well-appearing, well-nourished,obese, and in no acute distress. HEAD: Normocephalic, atraumatic. EYES: PERRLA and EOMI. ENT: Nares clear, no rhinorrhea or epistaxis. Mucous membranes moist. NECK: Supple.no lymphadenopathy CHEST: Clear to auscultation. No respiratory distress.SAO2 97% on room air HEART: Regular rate and rhythm. No murmur heard. Normal peripheral pulses. ABDOMEN: Soft, nontender, nondistended, normal active bowel sounds. EXTREMITIES: Normal range of motion. No edema. SKIN: Warm, dry. Erythema, induration, tenderness, to left lateral and top of left great toe nail no warmth ,No vesicles, no fluctuance of tissue, strong pedal pulse left foot, no tingling or numbness to left foot full mobility of all toes.no swelling of foot. NEURO: No focal deficits. Alert and oriented x3. Course Course Emergency Course: Patient is aware of diagnosis, understands
== END 2023-11-17 17:40 | disposition home or self-care (01) ==
PROVIDERS: Emergency Provider Registered Nurse; PCP Nurse Practitioner Family
DX: L03.032 Cellulitis of left toe (principal); F17.290 Nicotine dependence, other tobacco product, uncomplicated; J45.909 Unspecified asthma, uncomplicated
CPT/HCPCS: 99213; G0463

== ENCOUNTER 2024-11-06 15:38 | Emergency (ER) | payer OTHER, SELFPAY ==
--- OUTSIDE RECORDS SUMMARY | 2024-11-06 15:41 | XMS_ITS | Clinical Summary ---
Author Organization [facility] Address [address] [place] [address] Care Team Providers Care Barrel Header Name Role Phone Nancy Grant NP Primary Care Provider Stalin avalos Allergies Active Allergy Reactions Criticality Noted Date Comments Penicillins Propranolol Unknown,Hives Medium 12/29/2019 Medications albuterol HFA (PROVENTIL HFA,VENTOLIN HFA,PROAIR HFA) 90 mcg/actuation inhaler Inhale 1-2 puffs every 6 (six) hours as needed for wheezing 1 Inhaler 9 Active EPINEPHrine (EpiPen 2-Sonny) 0.3 mg/0.3 mL auto-injection syringe Take 1 auto by injection route. Active Active Problems Problem Noted Date Diagnosed Date BMI 45.0-49.9, adult 08/17/2023 Clinical diagnosis of COVID-19 06/07/2021 Surgical History Surgery Date Site/Laterality Comments MYRINGOTOMY W/ TUBES Medical History Medical History Date Comments Asthma Clinical diagnosis of COVID-19 06/07/2021 Morbid obesity (HCC) Family History Medical History Relation Name Comments Depression Father Satish Cancer Maternal Grandfather Elle Alzheimer's disease Maternal Grandmother Asthma Mother Marianela COPD Mother Marianela Diabetes Mother Marianela Hearing loss Mother Marianela Heart disease Mother Marianela Hypertension Mother Marianela Cancer Mother's Sister Yennifer Mental illness Paternal Grandmother Genine Relation Name Status Comments Father Satish Maternal Grandfather Elle Maternal Grandmother Mother Marianela Mother's Sister Yennifer Paternal Grandmother Genine Social History Tobacco Use Types Packs/Day Years Used Date Smoking Tobacco: Former Cigarettes 0.3 3.4 S tarted: 06/2021 Smokeless Tobacco: Never Tobacco Cessation:Counseling Given: No Alcohol Use Standard Drinks/Week Comments Never 0 (1 standard drink = 0.6 oz pur e alcohol) AUDIT-C Answer Date Recorded Q1: How often do you have a drink containing alcohol? Monthly or less 08/17/2023 Q2: How many drinks containi ng alcohol do you have on a typical day when you are drinking? Patient does not drink Q3: How often do you have si x or more drinks on one occasion? Never 08/17/2023 Personal Safety Answer Date Recorded Getting School Help Needed Not on file 06/25 Comments No Sex and Gender Information Value Date Recorded Sex Assigned at Not on file Legal Sex Female 2:44 AM [employer]ATE [employer] Gender Identity Not on file Sexual Orientation Not on file Obstetrics History Para Term AB IAB SAB Ectopic Multiple Livin g Live Births 3 3 3 0 3 3 Date Outcome GA Total Labor Labor/2nd/3rd Weight Sex Type Anes PTL Merline A1 A5 Name Clin 2011 Term Vag-S pont Livin g 2014 Term Vag-S pont Livin g 2019 Term 39w 0d 1h 39m 1h 10m/0h 19m/0h 10m 3.602 kg (7 lb 15.1 oz) M Vag-S pont Epidur al N Livin g 8 9 [place] Geoffr ey Lowell, MD Complications:None Delivery Location:This [facility] ([facility]) Last Filed Vital Signs Vital Sign Reading Time Taken Comments Blood Pressure 154/97 08/17/2023 10:46 AM GATE C[employer]TER Pulse 101 08/17/2023 10:46 AM GATE CUTTER Temperature 36.4 C (97.5 F) 08/17/2023 10:46 AM GATE C[employer]TER Respiratory Rate 18 06/11/2021 11:30 AM GATE C[employer]TER Oxygen Saturation 96% 08/17/2023 10:46 AM GATE C[employer]TER Inhaled Oxygen Concentration - - Weight 142 kg (313 lb) 08/17/2023 10:46 AM GATE C[employer]TER Height 170.2 cm (5' 7 ) 08/17/2023 10:46 AM GATE C[employer]TER Body Mass Index 49.02 08/17/2023 10:46 AM GATE C[employer]TER Plan of Treatment Health Maintenance Due Date Last Done Comments Cervical Cancer Screening 1992 Depression Screening 1992 Hepatitis C Screening 1992 Varicella Vaccines (1 of 2 - 13+ 2-dose series) 2005 Regular Well Visit/Exam 18-64 2010 Influenza Vaccine (Season Ended) 2025 04/28/2007, 04/28/2005, 05/25/2003 DTaP/Tdap/Td Vaccine (9 - Td or Tdap) 12/07/2029 12/08/2019, 07/27/2014, 12/30/2006, Additional history exists Hepatitis B Screening Completed 08/14/1994 , 10/02/1993, 06/05/1993 HPV Vaccines Completed 02/18/2008, 12/2006, 12/30/2006 Pneumococcal vaccine <65 Aged Out No longer eligible based on patient's age to complete this topic Insurance [facility] Advance Directives For more information, please contact: [phone] * Full Code (Latest Code Status on File) Date Activated Date Inactivated Comments 01/12/2020 6:27 AM 01/14/2020 4:42 PM Full CPR in case of cardiopulmonary arrest Care Teams Barrel Header Relationship Specialty Start Date End Date Nancy Grant NP PCP - General 07/18/19
--- OUTSIDE RECORDS SUMMARY | 2024-11-06 15:41 | XMS_ITS | Clinical Summary ---
Author Organization [facility] Address [address] [place] [address] Phone Care Team Providers Care Nurse Infection Control Name Role Phone Grant, Nancy DALTON CNP Primary Care Provider [phone] Allergies Active Allergy Reactions Criticality Noted Date Comments Penicillins Hives,Swelling 10/18/2015 Medications metoclopramide (REGLAN) 10 MG Tablet Take 1 Tab by mouth 4 times daily as needed for Nausea. 10 Tab 0 6 Active Additional Information Patient not taking.Reported on 07/31/2024 ondansetron (ZOFRAN-ODT) 4 MG TABLET DISPERSIBLE Take 1 Tab by mouth every 8 hours as needed for Nausea. 10 Tab 7 Active Additional Information Patient not taking.Reported on 07/31/2024 ondansetron (ZOFRAN ODT) 4 MG TABLET DISPERSIBLE Take 1 Tab by mouth every 8 hours as needed for Nausea. 10 Tab 8 Active Additional Information Patient not taking.Reported on 07/31/2024 VENTOLIN HFA 108 (90 Base) MCG/ACT Aerosol Solution take 108 g by inhalation as needed. 0 8 Active albuterol (VENTOLIN HFA) 108 (90 Base) MCG/ACT Aerosol Solution take 2 Puffs by inhalation every 4 hours as needed for Wheezing or Cough. 8.5 g 8 Active metroNIDAZOLE (FLAGYL) 500 MG Tablet Take 1 Tablet by mouth 3 times daily. 30 Tablet 1 Active Additional Information Patient not taking.Reported on 07/31/2024 HYDROcodone-acet aminophen (NORCO) 5-325 MG Tablet Take 1-2 Tablets by mouth every 4 hours as needed for Moderate or more severe pain. 20 Tablet 1 Active Additional Information Patient not taking.Reported on 07/31/2024 fluticasone (FLONASE) 50 MCG/ACT Suspension 1 [place] by Nasal route daily. Use in each nostril as directed. 9.9 mL 4 Active Additional Information Patient not taking.Reported on 07/31/2024 triamcinolone (KENALOG) 0.1 % Ointment Apply 2 times daily. Application Site: Affected areas (Description and Location) 453.6 g 4 Active Additional Information Patient not taking.Reported on 07/31/2024 methylPREDNISolo ne (MEDROL DOSPACK) 4 MG Tablet Therapy Pack See product package insert for dosing schedule 21 Tablet 5 Active Immunizations Immunization Administration Dates Next Due TDAP Vaccine 01/01/2024 Social History Tobacco Use Types Packs/Day Years Used Date Smoking Tobacco: Former Cigarettes 0.5 8 Smokeless Tobacco: Never Tobacco Cessation:Counseling Given: Not Answered Alcohol Use Standard Drinks/Week Comments Not Currently 0 (1 standard drink = 0.6 oz pur e alcohol) Rarely Comments No Sex and Gender Information Value Date Recorded Sex Assigned at Not on file Legal Sex Female 8:49 PM CDT Gender Identity Not on file Sexual Orientation Not on file Last Filed Vital Signs Vital Sign Reading Time Taken Comments Blood Pressure 147/90 07/31/2024 5:45 AM MAP AND CHART MOUNTER Pulse 81 07/31/2024 5:45 AM MAP AND CHART MOUNTER Temperature 36.7 C (98 F) 07/31/2024 5:45 AM MAP AND CHART MOUNTER Respiratory Rate 18 07/31/2024 5:45 AM MAP AND CHART MOUNTER Oxygen Saturation 95% 07/31/2024 5:45 AM MAP AND CHART MOUNTER Inhaled Oxygen Concentration - - Weight 144.7 kg (319 lb) 07/31/2024 12:58 AM MAP AND CHART MOUNTER Height 170.2 cm (5' 7 ) 07/31/2024 12:58 AM MAP AND CHART MOUNTER Body Mass Index 49.96 07/31/2024 12:58 AM MAP AND CHART MOUNTER Plan of Treatment Health Maintenance Due Date Last Done Comments Hepatitis C Virus (HCV) Screening 1992 Pap Smear 2013 Cervical Cancer Screening (CCS) 2022 HPV/Cotest 2022 Influenza Immunization (#1) 02/21/202405/22, 04/28/2005, 05/25/2003 SARS-COV-2 Immunization ( season) 2024 Td Immunization Every 10 Years (Adults With 1 Tdap) 12/31/2033 01/01/2024, 12/08/2019, 07/27/2014, Additional history exists Respiratory Syncytial Virus (RSV) Immunization (Adult) (1 - 1-dose 75+ series) 12/24/2067 Hepatitis B Immunization Completed 995, 10/02/1993, 06/05/1993 Human Papillomavirus (HPV) Immunization Discontinued 02/18/2008, 04/28/2007, 12/30/2006 DTaP/Tdap/Td Immunization Discontinued 2023, 12/08/2019, 07/27/2014, Additional history exists TdaP Immunization Discontinued 01/01/2024, , 07/27/2014, Additional history exists Meningococcal Immunization (ACWY) Aged Out No longer eligible based on patient's age to complete this topic Pneumococcal Immunization Combined Aged Out No longer eligible based on patient's age to complete this topic Rotavirus Immunization Aged Out No lo nger eligible based on patient's age to complete this topic Insurance MEDICAID [place] Care Teams Nurse Infection Control Relationship Specialty Start Date End Date Grant, RONDA CruzN, [employer] [address] [place] [id number] PCP - General Family Medicine 02/14/17
--- OUTSIDE RECORDS SUMMARY | 2024-11-06 15:41 | XMS_ITS | Referral Summary ---
Author Organization [facility] Address [address] [place] [address] Care Team Providers Care System Software Programmer Name Role Phone Nancy Grant NP Primary [...] adult 08/17/2023 Clinical diagnosis of COVID-19 06/07/2021 Social History Tobacco Use Types Packs/Day Years [...] on file Legal Sex Female 2:44 AM DROP WIRE HANGER Gender Identity Not on file Sexual Orientation Not on file Last Filed Vital Signs Vital Sign Reading Time Taken Comments Blood Pressure 154/97 08/17/2023 10:46 AM DROP WIRE HANGER Pulse 101 08/17/2023 10:46 AM DROP WIRE HANGER Temperature 36.4 C (97.5 F) 08/17/2023 10:46 AM DROP WIRE HANGER Respiratory Rate 18 06/11/2021 11:30 AM DROP WIRE HANGER Oxygen Saturation 96% 08/17/2023 10:46 AM DROP WIRE HANGER Inhaled Oxygen Concentration - - Weight 142 kg (313 lb) 08/17/2023 10:46 AM DROP WIRE HANGER Height 170.2 cm (5' 7 ) 08/17/2023 10:46 AM DROP WIRE HANGER Body Mass Index 49.02 08/17/2023 10:46 AM DROP WIRE HANGER Plan of Treatment Not on file Insurance [facility] Advance Directives For more information, please contact: [phone] * Full Code (Latest Code Status on File) Date Activated Date Inactivated Comments 01/12/2020 6:27 AM 01/14/2020 4:42 PM Full CPR in case of cardiopulmonary arrest Care Teams System Software Programmer Relationship Specialty Start Date End Date Nancy Grant NP PCP - General 07/18/19
[2024-11-06 15:44] VITALS: BP 134/77; PULSE 105; RESP 20; TEMP 37.1; O2SAT 98
--- NOTE | 2024-11-06 16:09 | ED_ITS ---
HPI - General Adult General Chief complaint: Skin/Abscess/Foreign Body Stated complaint: rash Source: patient Mode of arrival: ambulatory Limitations: no limitations History of Present Illness HPI narrative: PATIENT PRESENTS FOR EVALUATION OF A PRURITIC RASH TO THE CHEST, ABDOMEN LOWER EXTREMITIES FOR LAST 5 DAYS. NO NEW LOTIONS, SOAPS, DETERGENTS, TOPICAL PRODUCTS. SHE HAS HAD HYPERSENSITIVITY SKIN REACTIONS IN THE PAST TO SEVERAL AGENTS. IN THE PAST, ORAL MEDROL DOSEPAK SEEMED TO HELP HER SYMPTOMS. SHE DENIES ANY FEVER, CHILLS, OR DRAINAGE. [place] IS [place]ING FOR [place] AND HER PCP SUGGESTED SHE BE EVALUATED TO RECEIVE A SCRIPT FOR ORAL STEROIDS. Related Data Home Medications Medication Instructions Recorded Confirmed Last Taken Type lisinopril 40 mg tablet mg 11/06/24 Unknown History Allergies Allergy/AdvReac Type Severity Reaction Status Date / Time Penicillins Allergy Severe Anaphylaxis Verified 11/06/24 15:47 Review of Systems Review of Systems: CONSTITUTIONAL: DENIES FEVER, CHILLS, OR SWEATS. EYES: DENIES VISUAL CHANGES, REDNESS, OR DISCHARGE. ENT: DENIES RHINORRHEA, CONGESTION, SORE THROAT, OR OTALGIA. CARDIOVASCULAR: DENIES CHEST PAIN, PALPITATIONS, OR EDEMA. RESPIRATORY: DENIES COUGH OR DYSPNEA. GASTROINTESTINAL: DENIES ABDOMINAL PAIN, NAUSEA, VOMITING, OR DIARRHEA. GENITOURINARY: DENIES DYSURIA OR HEMATURIA. SKIN: REPORTS PRURITIC RASH TO THE CHEST, ABDOMEN, AND LOWER EXTREMITY MUSCULOSKELETAL: DENIES BACK PAIN, JOINT PAIN, OR MYALGIA. NEUROLOGIC: DENIES HEADACHE, NUMBNESS, DIZZINESS, OR WEAKNESS. PSYCHIATRIC: DENIES ANXIETY OR DEPRESSION. [facility] Past Medical History Medical History ADHD (attention deficit hyperactivity disorder) Anxiety and depression Asthma Surgical History Surgical History No history of previous surgery Family History Family History Other No pertinent family history Social History Social History Smoking packs per day: 0.5 Smoking cigarettes per day: 10.0 Years smoked: 15 Smoking pack-years: 7.50 Smoking status: Current every day smoker Tobacco type: e-cigarettes/vaping Additional smoking assessment comments: former cigarette smoker now vapes Alcohol intake: current Alcohol use details: Social Substance use: never Living arrangements: with family Gender identity (if verbalized by the patient): Female Exam Narrative: GENERAL: WELL-APPEARING, WELL-NOURISHED, AND IN NO ACUTE DISTRESS. HEAD: NORMOCEPHALIC, ATRAUMATIC. EYES: PERRLA AND EOMI. ENT: NARES CLEAR, NO RHINORRHEA OR EPISTAXIS. MUCOUS MEMBRANES MOIST. OROPHARYNX WITHOUT TONSILLAR HYPERTROPHY EXUDATE OR OTHER LESIONS. BILATERAL TMS PEARLY CULLEN NONBULGING NECK: SUPPLE. NO ADENOPATHY OR MASSES. NO CAROTID BRUITS OR JVD CHEST: CLEAR TO AUSCULTATION. NO RESPIRATORY DISTRESS. NO WHEEZES RALES OR RHONCHI HEART: REGULAR RATE AND RHYTHM. NO MURMUR HEARD. NORMAL PERIPHERAL PULSES. ABDOMEN: SOFT, NONTENDER, NONDISTENDED, NORMAL ACTIVE BOWEL SOUNDS. EXTREMITIES: NORMAL RANGE OF MOTION. NO EDEMA. SKIN: THERE IS A FINE PINPOINT ERYTHEMATOUS RASH WHICH SPANS THE ANTERIOR ASPECT OF HER ABDOMEN AND BENEATH THE LEFT BREAST WELL DOWN THE POSTERIOR ASPECT OF THE LOWER EXTREMITIES NEURO: NO FOCAL DEFICITS. ALERT AND ORIENTED X3. PSYCH: NORMAL MOOD AND AFFECT. Course Course Emergency Course: THIS IS A 33-YEAR-OLD FEMALE PRESENTED FOR EVALUATION OF HER PRURITIC RASH. ETIOLOGY UNCLEAR. MEDROL DOSEPAK HAS HELPED IN THE PAST. PROVIDE HER WITH A PRESCRIPTION FOR THAT. SOUNDS LIKE SHE MAY HAVE HAD TINEA IN THE PAST SO PROVIDER WITH A PRESCRIPTION FOR KETOCONAZOLE. I WILL ALSO GIVE HER SCRIPT FOR TRIAMCINOLONE IF HER SYMPTOMS PERSIST [place]. SHE SHOULD FOLLOW-UP WITH HER PRIMARY CARE PROVIDER AND GO TO THE ER FOR WORSENING SYMPTOMS. PATIENT IN AGREEMENT WITH PLAN OF CARE. Level of Care: Express Care Visit Vital Signs Vital signs: Vital Signs Temperature 37.1 C 11/06/24 15:44 Pulse Rate 105 H 11/06/24 15:44 Respiratory Rate 20 11/06/24 15:44 Blood Pressure 134/77 11/06/24 15:44 Pulse Oximetry 98 11/06/24 15:44 Oxygen Delivery Room Air 11/06/24 15:44 Temperature 37.1 C 11/06/24 15:44 Pulse Rate 105 H 11/06/24 15:44 Respiratory Rate 20 11/06/24 15:44 Blood Pressure 134/77 11/06/24 15:44 Pulse Oximetry 98 11/06/24 15:44 Oxygen Delivery Room Air 11/06/24 15:44 Medical Decision Making Vital Signs Vital Signs: Vital Signs Temperature 37.1 C 11/06/24 15:44 Pulse Rate 105 H 11/06/24 15:44 Respiratory Rate 20 11/06/24 15:44 Blood Pressure 134/77 11/06/24 15:44 Pulse Oximetry 98 11/06/24 15:44 Oxygen Delivery Room Air 11/06/24 15:44 Temperature 37.1 C 11/06/24 15:44 Pulse Rate 105 H 11/06/24 15:44 Respiratory Rate 20 11/06/24 15:44 Blood Pressure 134/77 11/06/24 15:44 Pulse Oximetry 98 11/06/24 15:44 Oxygen Delivery Room Air 11/06/24 15:44 Discharge Plan Discharge Clinical Impression: Dermatitis Patient Disposition: Home Condition: Stable Instructions: Antibiotic Form, Dermatitis (ED) Additional Instructions: PLEASE TRY MEDROL DOSE ANAM FIRST TRIAMCINOLONE IS A STEROID CREAM THAT CAN TREAT DERMATITIS. KETOCONAZOLE IS AN ANTIFUNGAL CREAM THAT YOU CAN USE UNDER THE BREASTS IF YOU DEVELOP A RASH THERE Patient Language: Slovenian Prescriptions: New methylprednisolone 4 mg tablets,dose pack See Rx Instructions .ROUTE .COMPLEX Qty: 21 0RF Rx Instructions: for 6 days triamcinolone acetonide 0.1 % cream 1 applic topical BID Qty: 80 0RF ketoconazole 2 % cream 1 applic topical BID Qty: 60 0RF No Action lisinopril 40 mg tablet Follow-up/Referrals: Grant,Nancy Acosta APN [Primary Care Provider] - Time of Disposition: 15:59
== END 2024-11-06 16:02 | disposition home or self-care (01) ==
PROVIDERS: Emergency Provider Nurse Practitioner; PCP Nurse Practitioner Family
DX: L30.9 Dermatitis, unspecified (principal); F17.290 Nicotine dependence, other tobacco product, uncomplicated; J45.909 Unspecified asthma, uncomplicated
CPT/HCPCS: 99213; G0463